=== PATIENT | male | born 1935 | race Caucasian/White ===

== ENCOUNTER 2018-11-10 16:00 | Inpatient (IN) | payer MEDICARE, BC ==
[2018-11-10] MEDS ORDERED: MAGNESIUM HYDROXIDE 30ML CUP PO (16:30)
[2018-11-10] MEDS ORDERED: PENDING SANTYL ORDER FOR WOUND CARE XX (16:30)
[2018-11-10] MEDS: DOCUSATE SODIUM 100 MG CAP PO (21:18)
[2018-11-10] MEDS: BISACODYL 10 MG SUPP PR (21:18)
[2018-11-10] MEDS: SENNA TAB PO (21:19)
[2018-11-10 22:50] LABS: ADD UMIC NO; UR ASCORBIC ACID NEGATIVE (NEGATIVE); UR BACTERIA FEW /HPF (NONE SEEN); UR BILIRUBIN (Dip) NEGATIVE (NEGATIVE); UR BLOOD (Dip) NEGATIVE (NEGATIVE); UR CLARITY SLIGHTLY CLOUDY (CLEAR); UR COLOR YELLOW (YELLOW); UR GLUCOSE (Dip) NEGATIVE (NEGATIVE); UR KETONES (Dip) NEGATIVE (NEGATIVE); UR LEUKOCYTE ESTERASE (Dip) NEGATIVE Leu/ul (NEGATIVE); UR NITRITE (Dip) NEGATIVE (NEGATIVE); UR RBC 1 /HPF (0-5); UR SPECIFIC GRAVITY (Dip) 1.015 (1.003-1.030); UR TOTAL PROTEIN (Dip) NEGATIVE (NEGATIVE); UR UROBILINOGEN (Dip) NEGATIVE (NEGATIVE); UR WBC 7 /HPF (0-5)
[2018-11-11 07:36] LABS: ADD MAN DIFF? NO
[2018-11-11 07:38] LABS: ABNORMAL IP MESSAGE 1; BASOPHILS % 0.5 % (0.0-2.0); EOSINOPHILS # 0.2 10^3/ul (0.0-0.5); EOSINOPHILS % 2.6 % (0.0-7.0); HEMATOCRIT 38.1 % (42.0-52.0); HEMOGLOBIN 12.2 g/dl (14.0-18.0); LYMPHOCYTES # 1.1 10^3/ul (0.8-2.9); LYMPHOCYTES % 14.4 % (15.0-51.0); MEAN CORPUSCULAR HEMOGLOBIN 27.2 pg (29.0-33.0); MEAN PLATELET VOLUME 13.2 fl (7.4-10.4); MONOCYTE # 0.9 10^3/ul (0.3-0.9); MONOCYTES % 12.3 % (0.0-11.0); NEUTROPHIL # 5.2 10^3/ul (1.6-7.5); NEUTROPHILS % 69.9 % (39.0-77.0); PLATELET COUNT 268 10^3/UL (140-415); POSITIVE DIFF @See below; RED BLOOD COUNT 4.48 10^6/ul (4.70-6.10); RED CELL DISTRIBUTION WIDTH 17.4 % (11.5-14.5)
[2018-11-11 07:38] LABS: WHITE BLOOD COUNT 7.4 10^3/ul (4.8-10.8)
[2018-11-11 08:07] LABS: ALANINE AMINOTRANSFERASE 29 IU/L (13-69); ALBUMIN 3.1 g/dl (3.3-4.9); ALBUMIN/GLOBULIN RATIO 1.03; ALKALINE PHOSPHATASE 77 IU/L (42-121); ANION GAP 4 (5-13); ASPARTATE AMINO TRANSFERASE 20 IU/L (15-46); BILIRUBIN,INDIRECT 0.9 mg/dl (0-1.1); BILIRUBIN,TOTAL 0.9 mg/dl (0.2-1.3); BLOOD UREA NITROGEN 26 mg/dl (7-20); CALCIUM 8.7 mg/dl (8.4-10.2); CARBON DIOXIDE 30 mmol/L (21-31); CHLORIDE 103 mmol/L (97-110); CREATININE 1.08 mg/dl (0.61-1.24); GLUCOSE 101 mg/dl (70-220); SODIUM 137 mmol/L (135-144); TOTAL PROTEIN 6.1 g/dl (6.1-8.1)
[2018-11-11] MEDS: LISINOPRIL 5 MG TAB PO (10:15)
[2018-11-11] MEDS: ASPIRIN (EC) 81 MG TAB PO (10:15)
[2018-11-11] MEDS: FUROSEMIDE 20 MG TAB PO (10:16)
[2018-11-11] MEDS: DOCUSATE SODIUM 100 MG CAP PO ×2 (10:16→20:43)
[2018-11-11] MEDS: SENNA TAB PO (20:43)
[2018-11-12] MEDS: ACETAMINOPHEN 325 MG TAB PO (00:58)
[2018-11-12] MEDS: DOCUSATE SODIUM 100 MG CAP PO ×2 (09:57→21:00)
[2018-11-12] MEDS: ASPIRIN (EC) 81 MG TAB PO (09:58)
[2018-11-12] MEDS: FUROSEMIDE 20 MG TAB PO (10:05)
[2018-11-12] MEDS: LISINOPRIL 5 MG TAB PO (10:05)
[2018-11-12] MEDS: SENNA TAB PO (21:00)
[2018-11-13] MEDS: DOCUSATE SODIUM 100 MG CAP PO ×2 (09:00→21:27)
[2018-11-13] MEDS: FUROSEMIDE 20 MG TAB PO (09:21)
[2018-11-13] MEDS: ASPIRIN (EC) 81 MG TAB PO (09:21)
[2018-11-13] MEDS: SENNA TAB PO (21:26)
[2018-11-14] MEDS: DOCUSATE SODIUM 100 MG CAP PO ×2 (08:44→21:19)
[2018-11-14] MEDS: ASPIRIN (EC) 81 MG TAB PO (08:44)
[2018-11-14] MEDS: FUROSEMIDE 20 MG TAB PO (08:46)
[2018-11-14] MEDS: SENNA TAB PO (21:19)
[2018-11-15 08:51] LABS: ADD MAN DIFF? NO
[2018-11-15 08:55] LABS: WHITE BLOOD COUNT 6.1 10^3/ul (4.8-10.8)
[2018-11-15 08:55] LABS: BASOPHILS % 0.5 % (0.0-2.0); EOSINOPHILS # 0.1 10^3/ul (0.0-0.5); EOSINOPHILS % 2.3 % (0.0-7.0); HEMATOCRIT 37.8 % (42.0-52.0); HEMOGLOBIN 12.6 g/dl (14.0-18.0); LYMPHOCYTES # 1.2 10^3/ul (0.8-2.9); LYMPHOCYTES % 19.9 % (15.0-51.0); MEAN CORPUSCULAR HEMOGLOBIN 28.6 pg (29.0-33.0); MEAN CORPUSCULAR HGB CONC 33.3 g/dl (32.0-37.0); MEAN CORPUSCULAR VOLUME 85.7 fl (82.0-101.0); MONOCYTE # 0.7 10^3/ul (0.3-0.9); MONOCYTES % 10.7 % (0.0-11.0); NEUTROPHILS % 66.3 % (39.0-77.0); PLATELET COUNT 246 10^3/UL (140-415); RED BLOOD COUNT 4.41 10^6/ul (4.70-6.10); RED CELL DISTRIBUTION WIDTH 17.6 % (11.5-14.5)
[2018-11-15] MEDS: ASPIRIN (EC) 81 MG TAB PO (08:55)
[2018-11-15] MEDS: FUROSEMIDE 20 MG TAB PO (08:56)
[2018-11-15] MEDS: DOCUSATE SODIUM 100 MG CAP PO ×2 (08:56→20:33)
[2018-11-15 09:29] LABS: ALANINE AMINOTRANSFERASE 34 IU/L (13-69); ALBUMIN 3.1 g/dl (3.3-4.9); ALKALINE PHOSPHATASE 71 IU/L (42-121); ANION GAP 4 (5-13); ASPARTATE AMINO TRANSFERASE 20 IU/L (15-46); BILIRUBIN,INDIRECT 0.7 mg/dl (0-1.1); BILIRUBIN,TOTAL 0.7 mg/dl (0.2-1.3); BLOOD UREA NITROGEN 26 mg/dl (7-20); CARBON DIOXIDE 29 mmol/L (21-31); CHLORIDE 102 mmol/L (97-110); CREATININE 1.13 mg/dl (0.61-1.24); GLUCOSE 90 mg/dl (70-220); SODIUM 135 mmol/L (135-144); TOTAL PROTEIN 6.2 g/dl (6.1-8.1)
[2018-11-15 09:31] LABS: B-TYPE NATRIURETIC PEPTIDE 756 PG/ML (0-450)
[2018-11-15 09:36] LABS: POTASSIUM 5.4 mmol/L (3.5-5.1)
[2018-11-15] MEDS: NA POLYST SULFON 15 GM/60 ML BTL PO (16:02)
[2018-11-15] MEDS: SENNA TAB PO (20:33)
[2018-11-15] MEDS: ACETAMINOPHEN 325 MG TAB PO (20:39)
[2018-11-16] MEDS: ASPIRIN (EC) 81 MG TAB PO (08:41)
[2018-11-16] MEDS: DOCUSATE SODIUM 100 MG CAP PO ×2 (08:41→20:56)
[2018-11-16] MEDS: FUROSEMIDE 20 MG TAB PO (08:41)
[2018-11-16 11:05] LABS: ADD MAN DIFF? NO
[2018-11-16 11:11] LABS: ABNORMAL IP MESSAGE 1; BASOPHILS % 0.5 % (0.0-2.0); EOSINOPHILS # 0.1 10^3/ul (0.0-0.5); EOSINOPHILS % 1.7 % (0.0-7.0); HEMATOCRIT 39.3 % (42.0-52.0); HEMOGLOBIN 12.9 g/dl (14.0-18.0); LYMPHOCYTES % 13.7 % (15.0-51.0); MEAN CORPUSCULAR HEMOGLOBIN 28.1 pg (29.0-33.0); MEAN CORPUSCULAR HGB CONC 32.8 g/dl (32.0-37.0); MEAN CORPUSCULAR VOLUME 85.6 fl (82.0-101.0); MEAN PLATELET VOLUME 13.1 fl (7.4-10.4); MONOCYTES % 13.3 % (0.0-11.0); NEUTROPHIL # 5.3 10^3/ul (1.6-7.5); NEUTROPHILS % 70.5 % (39.0-77.0); PLATELET COUNT 260 10^3/UL (140-415); POSITIVE DIFF @See below; RED BLOOD COUNT 4.59 10^6/ul (4.70-6.10); RED CELL DISTRIBUTION WIDTH 18.2 % (11.5-14.5)
[2018-11-16 11:11] LABS: WHITE BLOOD COUNT 7.6 10^3/ul (4.8-10.8)
[2018-11-16 11:25] LABS: ALANINE AMINOTRANSFERASE 25 IU/L (13-69); ALBUMIN 3.1 g/dl (3.3-4.9); ALKALINE PHOSPHATASE 64 IU/L (42-121); ANION GAP 5 (5-13); ASPARTATE AMINO TRANSFERASE 20 IU/L (15-46); BILIRUBIN,INDIRECT 0.5 mg/dl (0-1.1); BILIRUBIN,TOTAL 0.5 mg/dl (0.2-1.3); BLOOD UREA NITROGEN 25 mg/dl (7-20); CALCIUM 8.6 mg/dl (8.4-10.2); CARBON DIOXIDE 28 mmol/L (21-31); CHLORIDE 102 mmol/L (97-110); CREATININE 1.13 mg/dl (0.61-1.24); GLUCOSE 105 mg/dl (70-220); POTASSIUM 4.5 mmol/L (3.5-5.1); SODIUM 135 mmol/L (135-144); TOTAL PROTEIN 6.2 g/dl (6.1-8.1)
[2018-11-16] MEDS: MAGNESIUM CITRATE 300 ML BTL PO (12:27)
[2018-11-16] MEDS: SENNA TAB PO (20:56)
[2018-11-17] MEDS: DOCUSATE SODIUM 100 MG CAP PO ×2 (09:00→21:00)
[2018-11-17] MEDS: FUROSEMIDE 20 MG TAB PO (09:31)
[2018-11-17] MEDS: ASPIRIN (EC) 81 MG TAB PO (09:33)
[2018-11-17] MEDS: SENNA TAB PO (21:00)
[2018-11-18] MEDS: FUROSEMIDE 20 MG TAB PO (09:13)
[2018-11-18] MEDS: ASPIRIN (EC) 81 MG TAB PO (09:13)
[2018-11-18] MEDS: DOCUSATE SODIUM 100 MG CAP PO ×2 (09:13→20:02)
[2018-11-18] MEDS: ACETAMINOPHEN 325 MG TAB PO (19:32)
[2018-11-18] MEDS: SENNA TAB PO (20:04)
[2018-11-19 06:32] LABS: ADD MAN DIFF? NO
[2018-11-19 06:39] LABS: ABNORMAL IP MESSAGE 1; BASOPHILS % 0.6 % (0.0-2.0); EOSINOPHILS # 0.2 10^3/ul (0.0-0.5); EOSINOPHILS % 2.9 % (0.0-7.0); HEMATOCRIT 37.9 % (42.0-52.0); HEMOGLOBIN 12.7 g/dl (14.0-18.0); LYMPHOCYTES # 1.2 10^3/ul (0.8-2.9); LYMPHOCYTES % 19.1 % (15.0-51.0); MEAN CORPUSCULAR HGB CONC 33.5 g/dl (32.0-37.0); MEAN CORPUSCULAR VOLUME 86.5 fl (82.0-101.0); MEAN PLATELET VOLUME 13.1 fl (7.4-10.4); MONOCYTE # 0.8 10^3/ul (0.3-0.9); MONOCYTES % 11.9 % (0.0-11.0); NEUTROPHIL # 4.2 10^3/ul (1.6-7.5); NEUTROPHILS % 65.2 % (39.0-77.0); PLATELET COUNT 243 10^3/UL (140-415); POSITIVE DIFF @See below; RED BLOOD COUNT 4.38 10^6/ul (4.70-6.10)
[2018-11-19 06:39] LABS: WHITE BLOOD COUNT 6.5 10^3/ul (4.8-10.8)
[2018-11-19 07:12] LABS: B-TYPE NATRIURETIC PEPTIDE 520 PG/ML (0-450)
[2018-11-19 07:13] LABS: ALANINE AMINOTRANSFERASE 23 IU/L (13-69); ALKALINE PHOSPHATASE 68 IU/L (42-121); ANION GAP 5 (5-13); ASPARTATE AMINO TRANSFERASE 20 IU/L (15-46); BILIRUBIN,INDIRECT 0.8 mg/dl (0-1.1); BILIRUBIN,TOTAL 0.8 mg/dl (0.2-1.3); BLOOD UREA NITROGEN 22 mg/dl (7-20); CALCIUM 8.6 mg/dl (8.4-10.2); CARBON DIOXIDE 27 mmol/L (21-31); CHLORIDE 103 mmol/L (97-110); CREATININE 1.06 mg/dl (0.61-1.24); GLUCOSE 94 mg/dl (70-220); POTASSIUM 4.5 mmol/L (3.5-5.1); SODIUM 135 mmol/L (135-144)
[2018-11-19] MEDS: ASPIRIN (EC) 81 MG TAB PO (08:20)
[2018-11-19] MEDS: DOCUSATE SODIUM 100 MG CAP PO ×2 (08:20→21:15)
[2018-11-19] MEDS: FUROSEMIDE 20 MG TAB PO ×2 (08:21→15:31)
[2018-11-19] MEDS: SENNA TAB PO (21:15)
[2018-11-20] MEDS: ASPIRIN (EC) 81 MG TAB PO (08:09)
[2018-11-20] MEDS: DOCUSATE SODIUM 100 MG CAP PO ×2 (08:09→21:10)
[2018-11-20] MEDS: FUROSEMIDE 40 MG TAB PO (08:10)
[2018-11-20] MEDS: SPIRONOLACTONE 25 MG TAB PO (12:27)
[2018-11-20] MEDS: SENNA TAB PO (21:10)
[2018-11-21 07:31] LABS: ANION GAP 5 (5-13); BLOOD UREA NITROGEN 24 mg/dl (7-20); CALCIUM 8.8 mg/dl (8.4-10.2); CARBON DIOXIDE 27 mmol/L (21-31); CHLORIDE 103 mmol/L (97-110); CREATININE 1.12 mg/dl (0.61-1.24); GLUCOSE 94 mg/dl (70-220); POTASSIUM 4.6 mmol/L (3.5-5.1); SODIUM 135 mmol/L (135-144)
[2018-11-21 07:37] LABS: B-TYPE NATRIURETIC PEPTIDE 488 PG/ML (0-450)
[2018-11-21] MEDS: DOCUSATE SODIUM 100 MG CAP PO ×2 (09:42→20:23)
[2018-11-21] MEDS: SPIRONOLACTONE 25 MG TAB PO (09:44)
[2018-11-21] MEDS: FUROSEMIDE 40 MG TAB PO (09:44)
[2018-11-21] MEDS: ASPIRIN (EC) 81 MG TAB PO (09:44)
[2018-11-21] MEDS: LACTULOSE 30ML CUP PO (20:23)
[2018-11-21] MEDS: SENNA TAB PO (20:23)
[2018-11-22] MEDS: FUROSEMIDE 40 MG TAB PO (08:37)
[2018-11-22] MEDS: DOCUSATE SODIUM 100 MG CAP PO ×2 (08:37→21:29)
[2018-11-22] MEDS: ASPIRIN (EC) 81 MG TAB PO (08:38)
[2018-11-22] MEDS: SPIRONOLACTONE 25 MG TAB PO (08:47)
[2018-11-22] MEDS: SENNA TAB PO (21:29)
[2018-11-23] MEDS: FUROSEMIDE 40 MG TAB PO (08:33)
[2018-11-23] MEDS: DOCUSATE SODIUM 100 MG CAP PO ×2 (08:34→20:29)
[2018-11-23] MEDS: SPIRONOLACTONE 25 MG TAB PO (08:34)
[2018-11-23] MEDS: ASPIRIN (EC) 81 MG TAB PO (08:35)
[2018-11-23] MEDS: SENNA TAB PO (20:29)
[2018-11-24 07:25] LABS: ADD MAN DIFF? NO
[2018-11-24 07:33] LABS: ABNORMAL IP MESSAGE 1; BASOPHILS % 0.5 % (0.0-2.0); EOSINOPHILS # 0.2 10^3/ul (0.0-0.5); EOSINOPHILS % 2.8 % (0.0-7.0); HEMATOCRIT 39.4 % (42.0-52.0); HEMOGLOBIN 13.1 g/dl (14.0-18.0); LYMPHOCYTES # 1.2 10^3/ul (0.8-2.9); LYMPHOCYTES % 19.2 % (15.0-51.0); MEAN CORPUSCULAR HEMOGLOBIN 28.6 pg (29.0-33.0); MEAN CORPUSCULAR HGB CONC 33.2 g/dl (32.0-37.0); MEAN PLATELET VOLUME 13.6 fl (7.4-10.4); MONOCYTE # 0.8 10^3/ul (0.3-0.9); MONOCYTES % 13.1 % (0.0-11.0); NEUTROPHIL # 4.1 10^3/ul (1.6-7.5); NEUTROPHILS % 64.1 % (39.0-77.0); PLATELET COUNT 252 10^3/UL (140-415); POSITIVE DIFF @See below; RED BLOOD COUNT 4.58 10^6/ul (4.70-6.10); RED CELL DISTRIBUTION WIDTH 18.3 % (11.5-14.5)
[2018-11-24 07:33] LABS: WHITE BLOOD COUNT 6.4 10^3/ul (4.8-10.8)
[2018-11-24 08:05] LABS: ANION GAP 6 (5-13); BLOOD UREA NITROGEN 27 mg/dl (7-20); CARBON DIOXIDE 27 mmol/L (21-31); CHLORIDE 102 mmol/L (97-110); GLUCOSE 98 mg/dl (70-220); MAGNESIUM 2.2 mg/dl (1.7-2.5); PHOSPHORUS 3.2 mg/dl (2.5-4.9); SODIUM 135 mmol/L (135-144)
[2018-11-24] MEDS: REGADENOSON 0.4 MG/5 ML SYG (09:56)
[2018-11-24] MEDS: SPIRONOLACTONE 25 MG TAB PO (10:47)
[2018-11-24] MEDS: ASPIRIN (EC) 81 MG TAB PO (10:47)
[2018-11-24] MEDS: DOCUSATE SODIUM 100 MG CAP PO (10:48)
[2018-11-24] MEDS: FUROSEMIDE 40 MG TAB PO (10:48)
== END 2018-11-24 14:30 | DRG 91 ==
LOC: VRC 11-21 16:20
DX: G72.81 Critical illness myopathy (principal); G92 Toxic encephalopathy; I50.21 Acute systolic (congestive) heart failure; I42.9 Cardiomyopathy, unspecified; I25.10 Atherosclerotic heart disease of native coronary artery without angina pectoris; R27.0 Ataxia, unspecified; K42.9 Umbilical hernia without obstruction or gangrene; E66.9 Obesity, unspecified; M19.90 Unspecified osteoarthritis, unspecified site; R32 Unspecified urinary incontinence; D50.9 Iron deficiency anemia, unspecified; M17.10 Unilateral primary osteoarthritis, unspecified knee; Z96.651 Presence of right artificial knee joint; Z68.37 Body mass index [BMI] 37.0-37.9, adult; Z85.46 Personal history of malignant neoplasm of prostate; F06.31 Mood disorder due to known physiological condition with depressive features; F06.8 Other specified mental disorders due to known physiological condition; G31.84 Mild cognitive impairment of uncertain or unknown etiology
CPT/HCPCS: 71045; 78452; 80048; 80053; 81001; 81003; 83735; 83880; 84100; 85025; 87081; 87086; 92507; 92523; 93017; 97110; 97116; 97150; 97163; 97166; 97530; 97535; 97542